=== PATIENT | female | born 1965 | race Caucasian/White ===

== ENCOUNTER 2017-07-30 12:23 | Emergency (ER) | payer OTHER ==
[~2017-07-30] VITALS: Ht 175.3 cm; Wt 101.2 kg
[~2017-07-30 12:23] MED LIST: COZAAR25 MG PO; DILANTIN100 MG PO; ECOTRIN81 MG; KETO10TA2 PO; METFORMIN HCL500 M1; PRAVACHOL10 MG; PRAVASTATIN SOD20 MG; SEPTRA DS TABLE1 TAB PO; SYNTHROID300 MCG PO; TEGRETOL XR400 MG PO; TRANXENE T-TAB7.5 MG; TRILIPIX135 MG; TRILIPIX45 MG; WELLBUTRIN XL300 MG; ZETIA10 MG
== END 2017-07-30 17:50 | disposition home or self-care (01) ==
LOC: ER 12:23
DX: R31.0 Gross hematuria (principal); N30.81 Other cystitis with hematuria

== ENCOUNTER 2017-09-28 04:45 | Day surgery (SDC) | payer OTHER ==
[~2017-09-28 04:45] MED LIST changes: +BUSPIRONE HCL5 MG PO; +LEXAPRO PO; +RELAFEN PO; +SKELAXIN800 MG PO; +[UNRECOGNIZED DRUG - OTHER] PO
== END 2017-09-28 11:35 | disposition home or self-care (01) ==
LOC: EDBD → CIR.AMB 04:45
DX: K80.10 Calculus of gallbladder with chronic cholecystitis without obstruction (principal)